=== PATIENT | male | born 1970 | race Caucasian/White ===

== ENCOUNTER 2017-04-02 14:18 | Emergency (ER) | payer OTHER ==
[~2017-04-02 14:18] MED LIST: HYDROCHLOROTHIA25 MG PO; LISINOPRIL20 MG PO; NAPROSYN500 MG PO
== END 2017-04-02 16:36 | disposition home or self-care (01) ==
LOC: CFTX 14:18 → CED 14:18 → CFTX 15:08
DX: S61.411A Laceration without foreign body of right hand, initial encounter (principal); F17.200 Nicotine dependence, unspecified, uncomplicated; I10 Essential (primary) hypertension; J44.9 Chronic obstructive pulmonary disease, unspecified; W23.0XXA Caught, crushed, jammed, or pinched between moving objects, initial encounter; Y92.9 Unspecified place or not applicable
CPT/HCPCS: 12002; 99283

== ENCOUNTER → 2017-04-17 | Emergency (ER) | payer OTHER | END | disposition home or self-care (01) | LOC: CFTX 11:40 → CED 11:40 | DX: S61.411D Laceration without foreign body of right hand, subsequent encounter (principal); I10 Essential (primary) hypertension; J44.9 Chronic obstructive pulmonary disease, unspecified; G47.33 Obstructive sleep apnea (adult) (pediatric) | CPT/HCPCS: 99281 ==

== ENCOUNTER 2017-06-13 23:25 | Emergency (ER) | payer OTHER | END 2017-06-14 01:19 | disposition home or self-care (01) | LOC: CED 23:25 | DX: F12.10 Cannabis abuse, uncomplicated (principal); J44.9 Chronic obstructive pulmonary disease, unspecified; I25.2 Old myocardial infarction | CPT/HCPCS: 99284 ==